=== PATIENT | male | born 1965 | race African-American/Black ===

== ENCOUNTER 2017-04-12 13:14 | Inpatient (IN) ==
[2017-04-12] MEDS ORDERED: DILTIAZEM 50 MG/10 ML VIAL IV STA (13:39)
[2017-04-12] MEDS ORDERED: DILTIAZEM 100 MG VIAL.ADD IV ONE (13:55)
[2017-04-12] MEDS ORDERED: SODIUM CHLORIDE 0.9% 0 ML IV ONE (13:56)
[2017-04-12] MEDS ORDERED: DILTIAZEM 50 MG/10 ML VIAL IV ONE (13:56)
[2017-04-12] MEDS ORDERED: DILTIAZEM INJ 100 MG in SODIUM CHLORIDE 0.9% 100 ML IV SCH (14:00)
[2017-04-12 14:16] LABS: Basophils % 0.3 % (0.0-0.8); Eosinophils % 0.3 % (0.00-10.9); Hematocrit 42.8 VOL% (42.0-52.0); Hemoglobin 14.1 GM/DL (14.0-18.0); Immature Granulocytes % 0.5 %; Immature Granulocytes Absolute 0.06 #; Lymphocytes # 1.5 10*3/uL (1.4-4.0); Lymphocytes % 13.2 % (21.2-54.2); Mean Corpuscular HGB Conc 32.9 GM/DL (32-36); Mean Corpuscular Hemoglobin 27 PG (27-34); Mean Corpuscular Volume 80.8 FL (87-102); Mean Platelet Volume 9.5 FL (9.6-12.0); Monocytes # 1.4 10*3/uL (0.11-0.8); Neutrophils % 72.7 % (38.7-73.9); Platelet Count 252 T/CUMM (130-400); Red Cell Distribution Width 13.5 % (9.3-17.3)
[2017-04-12 14:49] LABS: Alanine Aminotransferase 24 U/L (16-61); Albumin 3.2 G/DL (3.4-5.0); Alkaline Phosphatase 67 U/L (45-117); Aspartate Amino Transferase 13 U/L (0-37); Blood Urea Nitrogen 17 MG/DL (7-18); Calcium 9.1 MG/DL (8.5-10.1); Glucose 100 MG/DL (74-106); Potassium 3.8 MMOL/L (3.5-5.1); Sodium 136 MMOL/L (136-145); Thyroid Stimulating Hormone 0.659 uIU/ml (0.358-3.74); Total Protein 7.7 G/DL (6.4-8.3); Troponin I Only < 0.015 NG/ML (0.00-0.045)
[2017-04-12] MEDS ORDERED: LEVOFLOXACIN INJ 750 MG in PREMIX 1 EACH IV STA (15:43)
[2017-04-12] MEDS ORDERED: LEVOFLOXACIN INJ 150 ML IV ONE (15:45)
[2017-04-12] MEDS ORDERED: SODIUM CHLORIDE 0.9% 500 ML IV STA (15:46)
--- NOTE | 2017-04-12 15:47 | XRay Report ---
XR chest 2V Date: 04/12/2017 3:17 PM History: Fever Comparison: 03/06/2017 Technique: PA and lateral chest Findings: The heart is minimally enlarged with interval endovascular valve replacement x2. Progressive diffuse parenchymal findings especially in the lower lung zones with small pleural effusions. The pulmonary vasculature is more prominent. Right cervical rib with no acute osseous findings. Impression: Progressive cardiomegaly with interval endovascular valve replacement x2. Bilateral pneumonia with associated atelectasis and small pleural effusions. It is difficult to exclude superimposed minimal edema. Right cervical rib. PROCEDURE INTERPRETED AT [facility] DEPARTMENT OF RADIOLOGY Final Report Signed by: Dr. Liza Palm
--- NOTE | 2017-04-12 15:50 | Emergency Department Note ---
Kenn Box Manpreet, am scribing for, and in the presence of, Ralph Velasquez MD 13:39. Ron Box Doug C, MD, personally performed the services described in this documentation, ascribed by Chris Hawk in my presence, and it is both accurate and complete . Arrival - Arrival Chief Complaint: Arrhythmia/Palpitations Stated Complaint: increased HR ED Nursing Triage Note: C/o elevated heart rate-onset yesterday. States he was here yesterday and had his meds changed, but HR still elevated. Denies CP, SOB, or palpitations. Mode of Arrival: Ambulatory Limitations: No Limitations Source: Patient - History of Present Illness HPI Narrative: Patient 51-year-old black male comes today complaining of intermittent fevers for the last 5-6 days. Patient states she has had elevated heart rate for the last 2 days but has not had any chest pain or shortness of breath. Patient states she has felt chilled at times is never really checked his fever. He denies any GI symptoms he denies any urinary symptoms and is not having any symptoms of URI. He has a history of mitral valve repair in January of this year. He tells me this was done at [facility]. Has not had any recent tick bites that he is aware of. He denies any trouble voiding. Onset (ago): week(s) Consistency: constant, intermittent Severity: moderate Severity scale (1-10): 3 Allergies/Adverse Reactions: Allergies Allergy/AdvReac Type Severity Reaction Status Date / Time No Known Allergies Allergy Verified 12/07/16 06:50 Home Medications: Home Medications Medication Instructions Recorded Confirmed Type Apixaban [Eliquis] 5 mg PO BID 04/11/17 04/12/17 History Cyclobenzaprine [Flexeril] 10 mg PO TID PRN #30 tablet 04/11/17 04/12/17 Rx Losartan [Cozaar] 50 mg PO BID #60 tablet 04/11/17 04/12/17 Rx HYDROcodone/ACETAMIN 5-325 [[place] 1 tablet PO Q6H PRN 04/12/17 04/12/17 History 5-325] Review of System - Review of System 12 point system: reviewed and no additional remarkable complaints except as stated - Review of System Constitutional: Present: chills, fever, weakness. Absent: diaphoresis Head/Ears/Nose/Throat: Absent: nasal drainage, sore throat Respiratory: Absent: cough, respiratory distress, wheezing Cardiovascular: Present: palpitations. Absent: chest pain Gastrointestinal: Absent: abdominal pain, nausea, vomiting, diarrhea Genitourinary male: Absent: dysuria Musculoskeletal: Absent: arm pain, back pain, lower back pain, leg pain, neck pain Skin: Absent: rash, lesions, change in color Neurological: Absent: headache, weakness, numbness, paresthesias Medical,Surgical,& Family Hx - Medical History Cardio: History of: Hypertension, Valvular Heart Disease (Valve replacement January 2017) No history of: CAD Neurology: No history of: Seizures Endocrine: No history of: Diabetes Mellitus (IDDM), Diabetes Mellitus (NIDDM) - Surgical History Cardiac Surgeries: Sugical HX of: Cardiac Surgery (robotic mitral valve repair @ [facility] by Dr. Dominguez Jimenez) - Family History Family History: noncontributory - Social History Smoking Status: Former smoker Frequency of Alcohol Use: None Type of Drug Use: None Exam Vital Signs: Vital Signs Temperature 98.7 F 04/12/17 14:38 Pulse Rate 130 H 04/12/17 14:49 Respiratory Rate 18 04/12/17 14:49 Blood Pressure 133/105 04/12/17 14:49 O2 Sat by Pulse Oximetry 98 04/12/17 14:49 - General General appearance: alert - Head Head exam: Present: atraumatic, normocephalic, normal inspection - Eye Eye exam: Present: normal appearance, PERRL, EOMI - ENT ENT exam: Present: normal exam, normal oropharynx, mucous membranes moist - Neck Neck exam: Present: normal inspection, full ROM, trachea midline. Absent: lymphadenopathy - Chest Chest inspection: Present: normal inspection, symmetric chest wall rise - Respiratory Respiratory exam: Present: normal lung sounds bilaterally. Absent: respiratory distress - Cardiovascular Cardiovascular exam: Present: regular rate, normal rhythm, normal heart sounds - Abdominal Exam Abdominal exam: Present: soft, normal bowel sounds - Extremities Exam Extremities exam: Present: normal inspection, full ROM - Back Exam Back exam: Present: normal inspection, full ROM. Absent: tenderness - Neurological Exam Neurological exam: Present: alert, oriented X3, CN II-XII intact, reflexes normal - Psychiatric Psychiatric exam: Present: normal affect, normal mood - Skin Skin exam: Present: warm, dry, intact, normal color. Absent: pallor Course Course Narrative: Patient's clinical presentation, laboratory and radiographic findings were discussed with Amie who is covering the hospitalist service. She will arrange patient be evaluated for admission. Blood cultures and IV Levaquin were begun in the emergency room. Patient was given a bolus of Cardizem in the emergency room which slowed his heart rate down into the 120s. He did not have any evidence of underlying atrial flutter. Results - Labs CBC & BMP: 04/12/17 14:09 04/12/17 14:09 Lab Results: I have reviewed the patients labs Labs: Laboratory Tests 04/12/17 14:09 WBC 11.0 RBC 5.30 Hgb 14.1 Hct 42.8 MCV 80.8 L MCH 27 MCHC 32.9 RDW 13.5 Plt Count 252 Neut % (Auto) 72.7 Lymph % (Auto) 13.2 L [place] % (Auto) 13.0 H Eos % (Auto) 0.3 Baso % (Auto) 0.3 Neut # (Auto) 8.0 H Lymph # (Auto) 1.5 [place] # (Auto) 1.4 H Eos # (Auto) 0.0 Baso # (Auto) 0.0 Immature Gran % 0.5 Nucleated RBC % 0.0 Immature Gran # 0.06 Nucleated RBCs # 0.00 Immature Plt Fraction 0.0 Laboratory Tests 04/12/17 04/12/17 14:09 14:09 C-Reactive Protein 22.60 H Free T4 1.08 Laboratory Tests 04/12/17 04/12/17 14:09 14:09 Sodium 136 Potassium 3.8 Chloride 102 Carbon Dioxide 24 Anion Gap 13.8 BUN 17 Creatinine 1.20 GFR Calculation 101 BUN/Creatinine Ratio 14.00 Glucose 100 Calculated Osmolality 273.0 Calcium 9.1 Total Bilirubin 0.70 AST 13 ALT 24 Alkaline Phosphatase 67 Troponin I < 0.015 C-Reactive Protein 22.60 H Total Protein 7.7 Albumin 3.2 L Globulin 4.5 H Albumin/Globulin Ratio 0.7 L TSH 3rd Generation 0.659 Laboratory Tests 04/12/17 14:09 ESR Westergren 23 H - EKG EKG results: interpreted by ERMD EKG shows: tachycardia (Sinus tachycardia with heart rate of 139 bpm) - Diagnostic Findings Procedure: Chest x-ray: report reviewed by me (Right lower lobe pneumonia) Disposition Clinical Impression: Pneumonia, Sinus tachycardia Case discussed with: patient Disposition: Still a Patient Condition: Guarded Time of Disposition: 15:49
--- NOTE | 2017-04-12 15:59 | Order Completion Report ---
See report scanned to EMR
--- NOTE | 2017-04-12 16:03 | Hospitalist History & Physical ---
<Amie Maloney - Last Filed: 04/12/17 16:00> Assessment and Plan - Time spent with patient Time spent with patient: Greater than 30 minutes (1) Pneumonia Status: Acute Assessment and plan: Admit 04/12/17 -Start IV fluids -Sinus tachycardia: hydration, Log Check Scaler -Pneumonia: Blood cultures obtained - pending results Start Antibiotics - levaquin -Duonebs, o2 supplemental -Will discuss with Dr Brunner for further recommendations with care Current Visit: Yes (2) Sinus tachycardia Status: Acute Current Visit: Yes (3) Hypertension Status: Chronic Current Visit: No History of Present Illness Chief complaint: heart racing and pneumonia History of present illness: Mr. Washburn is a 51 year old black male w/PMHx HTN, Mitral Valve Replacement January 2017 presented to the Ed for further evaluation of "heart racing" and shortness of breath with exertion, fever and chills. Denies chest pain, tightness, cough, nausea, vomiting, cough. IN ED: Electrolytes WNL. ESR Westergren 23. CRP 22.60. CXR: Progressive cardiomegaly with interval endovascular valve replacement x2, bilateral pneumonia with associated atelectasis and small pleural effusions, it is difficult to exclude superimposed minimal edema. EKG: sinus tachycardia. IN ED he was given bolus diltiazem, levaquin, 500cc bolus. Denies smoking or drug use. Occasional alcohol use. SurgHx: hernia repair 15 years ago, Mitral Valve replacement Jan 2017. PCP: Dr Hamilton After discussion with Dr Velasquez in the ED and Dr Brunner with Hospital Medicine , it was agreed to admit patient for further evaluation of tachycardia, exertional shortness breath, and bilateral pneumonia. Home Medications Medication Instructions Recorded Confirmed Type Apixaban [Eliquis] 5 mg PO BID 04/11/17 04/12/17 History Cyclobenzaprine [Flexeril] 10 mg PO TID PRN #30 tablet 04/11/17 04/12/17 Rx Losartan [Cozaar] 50 mg PO BID #60 tablet 04/11/17 04/12/17 Rx HYDROcodone/ACETAMIN 5-325 [[place] 1 tablet PO Q6H PRN 04/12/17 04/12/17 History 5-325] Allergies Allergy/AdvReac Type Severity Reaction Status Date / Time No Known Allergies Allergy Verified 12/07/16 06:50 Medical,Surgical,& Family Hx - Medical History Cardio: History of: Hypertension, Valvular Heart Disease (Valve replacement January 2017) No history of: CAD Neurology: No history of: Seizures Endocrine: No history of: Diabetes Mellitus (IDDM), Diabetes Mellitus (NIDDM) - Surgical History Cardiac Surgeries: Sugical HX of: Cardiac Surgery (robotic mitral valve repair @ [facility] by Dr. Dominguez Jimenez) - Family History Family History: Reports;: Family Cancer, Family Diabetes, Family Heart Disease, Family Hypertension - Social History Smoking Status: Former smoker Frequency of Alcohol Use: None Type of Drug Use: None Marital Status: Lives With:: Spouse Functional capacity: independent ambulation 12 point system: reviewed and no additional remarkable complaints except as stated - Constitutional Constitutional: Present: chills, fever(s). Absent: frequent falls, headache(s) - Cardiovascular Cardiovascular: Present: dyspnea on exertion, palpitations. Absent: chest pain at rest, chest pain with activity, edema, radiating jaw, neck or arm pain - Respiratory Respiratory: Present: dyspnea on exertion. Absent: wheezing - Gastrointestinal Gastrointestinal: Absent: abdominal pain - Genitourinary Genitourinary: Absent: difficulty urinating, dysuria, flank pain - Neurological Neurological: Absent: abnormal speech, confusion, dizziness, frequent falls, headache(s), syncope Exam - Constitutional Vitals: Period Temp Pulse Resp BP Sys/Strong Pulse Ox Last 24 Hr 98.7 F-98.7 F 127-143 18-22 133-149/103-105 98-99 General appearance: normal weight, no acute distress - Head Head exam: Present: normal inspection - Eye Eye exam: Present: EOMI Pupils: Present: ETHEL - Neck Neck exam: Present: normal inspection. Absent: thyromegaly - Respiratory Respiratory exam: Present: clear to auscultation bilaterally. Absent: rales, rhonchi, stridor, wheezes - Cardiovascular Cardiovascular exam: Present: tachycardia - GI/Abdominal GI/Abdominal exam: Present: normal bowel sounds, soft. Absent: tenderness, rebound - Extremities Exam Extremities exam: Present: normal inspection, full ROM. Absent: edema - Neurological Exam Neurological exam: Present: alert, oriented X3, CN II-XII intact - Psychiatric Psychiatric exam: Present: normal affect, normal mood. Absent: agitated, anxious - Skin Skin exam: Present: normal color, warm, dry Results - Labs CBC & BMP: 04/12/17 14:09 04/12/17 14:09 Lab Results: I have reviewed the past 24 hour labs - EKG EKG results: interpreted by PURNIMA - Diagnostic Findings Procedure: Chest x-ray: report reviewed by me (Progressive cardiomegaly with interval endovascular valve replacement 2, bilateral pneumonia with associated atelectasis and small pleural effusions, it is difficult to exclude superimposed minimal edema. Right cervical rib.) <Pepe Brunner - Last Filed: 04/13/17 07:20> History of Present Illness History of present illness: Mr. Washburn is a 51 year old male who is being admitted to the hospital with pneumonia status post recent mitral valve replacement. I have interviewed and examined the patient and reviewed all available laboratory and radiographic test results. I agree with the assessment and plans of Amie STOCK. Mr. Washburn will be admitted to the hospital, begun on intravenous antibiotics, and seen in consultation by cardiology and pulmonary. Exam - Constitutional Vitals: Period Temp Pulse Resp BP Sys/Strong Pulse Ox Last 24 Hr 97.0 F-99.8 F 116-143 18-24 133-168/96-108 92-100 Results - Labs CBC & BMP: 04/13/17 04:42 04/13/17 04:42
[2017-04-12] MEDS ORDERED: ONDANSETRON 4 MG/2 ML VIAL IV PRN (16:43)
[2017-04-12] MEDS ORDERED: ACETAMINOPHEN 325 MG TABLET PO PRN (16:43)
[2017-04-12] MEDS ORDERED: MORPHINE 2 MG/1 ML SYRINGE IV PRN (16:43)
[2017-04-12] MEDS ORDERED: INFLUENZA VIRUS VACCINE 0.5 ML SYRINGE IM ONE (17:56)
[2017-04-12] MEDS: SODIUM CHLORIDE 0.9% 1,000 ML IV SCH (18:48)
--- NOTE | 2017-04-12 19:02 | Cardiology Consult Note ---
Assessment and Plan - Time spent with patient Time spent with patient: Greater than 30 minutes (1) Pneumonia Status: Acute Assessment and plan: See plan of care listed below. Current Visit: Yes (2) Sinus tachycardia Status: Acute Assessment and plan: See plan of care listed below. Current Visit: Yes (3) Chronic anticoagulation Status: Chronic Assessment and plan: See plan of care listed below. Current Visit: No (4) Hypertension Status: Chronic Assessment and plan: See plan of care listed below. Current Visit: No (5) S/P mitral valve repair Status: Chronic Assessment and plan: See plan of care listed below. Current Visit: No History of Present Illness - Consult Narrative History of present illness: 51-year-old male admitted with shortness of breath and cough. Chest x-ray shows moderate cardiomegaly with right lower lobe pneumonia and a tiny effusions. White count 11.0 hemoglobin 14.1 potassium 3.8 creatinine 1.20C reactive protein 22.6 with a negative troponin. UA is negative. EKG shows sinus tachycardia and ST-T wave changes unchanged from prior tracings. The patient is status post robotic mitral valve repair February 13, [address] Jimenez. Preop cardiac cath showed widely patent coronary arteries, normal ventricular function and severe mitral regurgitation with posterior leaflet prolapse. He does have chronic hypertension for 15 years. His medications have been recently adjusted.. He was taking metoprolol 50 mg twice daily and he felt fatigued, had bradycardia was cut back to 25 mg twice daily. He was seen in fast track yesterday with neck pain and was treated with Norflex and Toradol. He also was given labetalol 20 mg IV and then losartan gradually abated was added to his hypertensive regimen. Follow-up was scheduled with Dr. Ibrahim in 1 week. Blood pressure is 146/100. Pulse is sinus tach rate 120 O2 sat 93% on 2 L cannula. Bilateral arcus no xanthelasma. Neck veins are flat lungs show decreased breath sounds with a few rhonchi in the right side only no wheezing. Rhythm is regular soft murmur at the lower sternal border abdomen obese soft benign femoral pulses 2+ pulses 2+ no edema. Home medications as of discharge from fast track yesterday included losartan 50 mg twice daily, hydrocodone 5 every 6 hours as needed for neck pain and Flexeril 10 mg 3 times daily and Eliquis 5 g twice daily and metoprolol 25 mg twice daily. No allergies Impression right lower lobe pneumonia Chronic hypertension long-standing with inadequate control Sinus tachycardia. This is physiologic tachycardia due to pneumonia and hypertension. Status post robotic mitral valve repair February 15, 2070 at [facility] by Dr. Jimenez. Chronic anticoagulation Preop cath showed widely patent quite a normal ventricular function EF 60% Remote tobacco abuse Normal exercise cardiac stress test November 27, 2016 EF 58% patient had good work capacity achieving 11.5 mets Echo Doppler April 01 2017 EF 58% with grade 1 diastolic dysfunction, mildly dilated left atrium, well-seated mitral valve ring with no MR, normal RV function mild TR. Plan Cozaar 100 mg daily Increase carvedilol 6.25 mg twice daily IV antibiotics and nebs CC: Pepe Brunner - Home Medications and Allergies Home Medications: Home Medications Medication Instructions Recorded Confirmed Type Apixaban [Eliquis] 5 mg PO BID 04/11/17 04/12/17 History Cyclobenzaprine [Flexeril] 10 mg PO TID PRN #30 tablet 04/11/17 04/12/17 Rx Losartan [Cozaar] 50 mg PO BID #60 tablet 04/11/17 04/12/17 Rx HYDROcodone/ACETAMIN 5-325 [[place] 1 tablet PO Q6H PRN 04/12/17 04/12/17 History 5-325] Allergies/Adverse Reactions: Allergies Allergy/AdvReac Type Severity Reaction Status Date / Time No Known Allergies Allergy Verified 12/07/16 06:50 Review of systems: - Constitutional: Present: fever, chills, As per HPI. Absent: anorexia, daytime sleepiness, excessive sweating, frequent falls, headache(s), increased appetite, lethargy, malaise, night sweats, stops breathing during sleep, weakness, weight gain, weight loss, fatigue. - EENT Eyes: Present: As per HPI. Absent: blurry vision, diplopia, loss of vision Ears: Present: As per HPI. Absent: decreased hearing, ear discharge, ear pain Nose, mouth and throat: Present: neck pain, As per HPI. Absent: dysphagia, epistaxis, headache(s), hoarseness, lip swelling, nasal congestion, neck mass, sinus pressure, sore throat, throat swelling, tongue swelling, vertigo - Cardiovascular: Present: as per HPI. Absent: chest pain at rest, chest pain with activity, dyspnea, dyspnea on exertion, edema, claudication, diaphoresis, radiating jaw, neck or arm pain, lightheadedness, orthopnea, palpitations, PND - Respiratory: Present: dyspnea, as per HPI. Absent: dyspnea on exertion, hemoptysis, wheezing, snoring, pain on inspiration - Gastrointestinal: Present: As per HPI. Absent: abdominal pain, bloating, change in bowel habits, constipation, diarrhea, heartburn, hematemesis, hematochezia, loose stools, melena, nausea, vomiting - Genitourinary: Present: As per HPI. Absent: difficulty urinating, dysuria, flank pain, hematuria, nocturia, urinary frequency, urinary incontinence - Musculoskeletal: Present: neck pain, As per HPI. Absent: arthralgias, back pain, joint swelling, limited range of motion, muscle cramps, muscle weakness, myalgias - Neurological: Present: As per HPI. Absent: abnormal gait, abnormal speech, behavioral changes, confusion, convulsions, disequilibrium, dizziness, focal weakness, frequent falls, headache(s), memory loss, numbness, paresthesias, radicular pain, syncope, tremor(s) - Psychiatric: Present: As per HPI. Absent: anxiety, confusion, depression, panic attacks - Endocrine: Present: As per HPI. Absent: cold intolerance, fatigue, heat intolerance, polydipsia, polyphagia - Hematologic/Lymphatic: Present: As per HPI. Absent: easy bleeding, easy bruising, lymphadenopathy Medical,Surgical,& Family Hx - Medical History Cardio: History of: Hypertension, Valvular Heart Disease (Valve replacement January 2017) No history of: CAD Neurology: No history of: Seizures Endocrine: No history of: Diabetes Mellitus (IDDM), Diabetes Mellitus (NIDDM) Musculoskeletal: History of: Back/Neck Problems Other: No history of: Cancer - Surgical History Cardiac Surgeries: Sugical HX of: Cardiac Catheterization, Cardiac Surgery ( robotic mitral valve repair 02/13/17 @ [facility] by Dr. Dominguez Jimenez) HEENT Surgeries: Patient denies: Tonsilectomy & Adenoidectomy Abdominal Surgeries: Patient denies: Appendectomy, Cholecystectomy - Family History Family History: Reports;: Family Cancer (SISTER), Family Diabetes (MOTHER, FATHER), Family Heart Disease, Family Hypertension (MOTHER, FATHER), Family Stroke (BROTHER) - Social History Smoking Status: Former smoker Frequency of Alcohol Use: Occasionally Type of Drug Use: None Physical Examination Vital Signs Temp Pulse Resp BP Pulse Ox 98.7 F 143 H 18 139/103 98 04/12/17 13:18 04/12/17 13:18 04/12/17 13:18 04/12/17 13:18 04/12/17 13:18 Exam: General appearance: Appears well. Pleasant and cooperative. Overweight, no acute distress. Head exam: Present: normal inspection, normocephalic, atraumatic. Absent: hematoma, laceration Eye exam: Present: EOMI. Absent: conjunctival injection, nystagmus, periorbital swelling, scleral icterus, laceration to eyelids, jaundice Pupils: Present: PERRL. Absent: constricted, dilated, fixed, irregular, unequal ENT exam: Present: normal exam, normal external ear exam, mucous membranes moist. Neck exam: Present: normal inspection, midline trachea. Absent: masses, lymphadenopathy, tenderness, thyromegaly, carotid bruit Respiratory exam: Present: decreased breath sounds with few rhonchi in the right side only, no wheezing. Absent: accessory muscle use, chest wall tenderness, rales. Cardiovascular exam: Present: regular rate and rhythm, tachycardia. Systolic murmur. Absent: gallop, JVD, rubs, GI/Abdominal exam: Present: normal bowel sounds, soft. Absent: distended, firm , hernia, mass, tenderness. Extremities exam: Present: Normal Gait, No Clubbing, No Cyanosis, Upper Extr. Pulses 2+, Lower Extr. Pulses 2+, No edema. Capillary refill less than 3 seconds. Musculoskeletal: Present: No Fluid Collection, No Pain, Normal Range of Motion Back exam: Present: normal inspection. Absent: muscle spasm, vertebral tenderness Neurological exam: Present: awake, alert, oriented X3, Moves all extremities well without hemiparesis or paralysis. Grossly intact without resting or essential tremor Psychiatric exam: Present: normal affect, normal mood Skin exam: Present: normal color, warm, dry, intact. Absent: cyanosis, diaphoretic, rash, urticaria Result/EKG - Labs CBC & BMP: 04/12/17 14:09 04/12/17 14:09 Lab Results: I have reviewed the past 24 hour labs Labs: Laboratory Results - last 24 hr 04/12/17 04/12/17 04/12/17 14:09 14:09 14:09 WBC 11.0 RBC 5.30 Hgb 14.1 Hct 42.8 MCV 80.8 L MCH 27 MCHC 32.9 RDW 13.5 Plt Count 252 MPV 9.5 L Neut % (Auto) 72.7 Lymph % (Auto) 13.2 L [place] % (Auto) 13.0 H Eos % (Auto) 0.3 Baso % (Auto) 0.3 Neut # (Auto) 8.0 H Lymph # (Auto) 1.5 [place] # (Auto) 1.4 H Eos # (Auto) 0.0 Baso # (Auto) 0.0 Immature Gran % 0.5 Nucleated RBC % 0.0 Immature Gran # 0.06 Nucleated RBCs # 0.00 Immature Plt Fraction 0.0 ESR Westergren Sodium 136 Potassium 3.8 Chloride 102 Carbon Dioxide 24 Anion Gap 13.8 BUN 17 Creatinine 1.20 GFR Calculation 101 BUN/Creatinine Ratio 14.00 Glucose 100 Calculated Osmolality 273.0 Calcium 9.1 Total Bilirubin 0.70 AST 13 ALT 24 Alkaline Phosphatase 67 Troponin I < 0.015 C-Reactive Protein Total Protein 7.7 Albumin 3.2 L Globulin 4.5 H Albumin/Globulin Ratio 0.7 L Free T4 1.08 TSH 3rd Generation 0.659 04/12/17 04/12/17 14:09 14:09 WBC RBC Hgb Hct MCV MCH MCHC RDW Plt Count MPV Neut % (Auto) Lymph % (Auto) [place] % (Auto) Eos % (Auto) Baso % (Auto) Neut # (Auto) Lymph # (Auto) [place] # (Auto) Eos # (Auto) Baso # (Auto) Immature Gran % Nucleated RBC % Immature Gran # Nucleated RBCs # Immature Plt Fraction ESR Westergren 23 H Sodium Potassium Chloride Carbon Dioxide Anion Gap BUN Creatinine GFR Calculation BUN/Creatinine Ratio Glucose Calculated Osmolality Calcium Total Bilirubin AST ALT Alkaline Phosphatase Troponin I C-Reactive Protein 22.60 H Total Protein Albumin Globulin Albumin/Globulin Ratio Free T4 TSH 3rd Generation - EKG EKG results: interpreted by me, sinus rhythm EKG shows: tachycardia
--- NOTE | 2017-04-12 20:15 | Pulmonology Consult Note ---
History of Present Illness Chief complaint: Pneumonia History of present illness: Troy Valencia, [facility], acting as scribe for Dr. Boby Diez Mr. Washburn is a 51 year old -[place] male who we have been asked to see in pulmonary consultation for evaluation and treatment. The request for consultation was made by Dr. Brunner. Mr. Washburn presented to [facility]'s ER yesterday with complaints of neck pain and upper back pain that started on Saturday (3 days prior). He had hypertension and sinus tachycardia while in the ER. He was seen in fast track by Dr. coley. Medication adjustments were made. He was discharged home and instructed to follow-up with his primary care physician (Dr. Anabela Hamilton) and his educational technology specialist Dr. Ibrahim. Today, however, he presented back to the ER with complaints of intermittent fevers for the past 5-6 days. He also reported tachycardia but denied chest pain or shortness of breath. Upon evaluation, he was found to have an acute right lower lobe infiltrate compatible with pneumonia. He was admitted for further evaluation and care. He reports increasing shortness of breath for the past few days to week. He has had associated fever and chills. He reports a cough, but has had difficulty mobilizing his secretions. He denies cardiac angina or palpitations. He had a mitral valve replacement in January 2017. He denies dysphasia or reflux. There is been no bleeding from any site. No TIA symptoms or syncope. No change in bowel or bladder habits. All other systems are reviewed and were negative. Allergies: None Home medications: See list Past medical history: Positive for hypertension and valvular heart disease now status post mitral valve replacement in January 2017. Of note, he is on chronic anticoagulation with Eliquis. Surgical history: Positive for mitral valve replacement in January 2017. This was done robotically at [facility] by Dr. Dominguez Jimenez. Family history: Positive for an unknown type of cancer, diabetes, heart disease , and hypertension Social history: The patient is a former smoker. He states he quit approximately 15-16 years ago. 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 He is . He drinks alcohol at least weekly. Cervical spine x-ray done 04/11/2017 showed no acute fracture or subluxation the cervical spine. There were mild degenerative changes noted. Chest x-ray. Done 04/12/2017. My interpretation. Cardiomegaly. Acute right lower lobe infiltrate with associated small pleural effusion. Endovascular valve replacement 2. Laboratory: White count is 11,000 with 72.7% segs, 13.2% lymphs, and 13.0% monos ; H&H 14.1/42.8 with low to low normal indices and normal red blood cell distribution width; platelet count 252,000; creatinine 1.20, BUN 17, sodium 136 , potassium 3.8, calcium 9.1, albumin 3.2, total protein 7.7; liver function tests within normal limits; troponin less than 0.015; C-reactive protein markedly elevated at 22.60, sed rate minimally elevated at 23, BNP 148; TSH and free T4 normal at 0.659 and 1.08 respectively Home Medications Medication Instructions Recorded Confirmed Type Apixaban [Eliquis] 5 mg PO BID 04/11/17 04/12/17 History Cyclobenzaprine [Flexeril] 10 mg PO TID PRN #30 tablet 04/11/17 04/12/17 Rx Losartan [Cozaar] 50 mg PO BID #60 tablet 04/11/17 04/12/17 Rx HYDROcodone/ACETAMIN 5-325 [Faison 1 tablet PO Q6H PRN 04/12/17 04/12/17 History 5-325] Allergies Allergy/AdvReac Type Severity Reaction Status Date / Time No Known Allergies Allergy Verified 12/07/16 06:50 Exam (Pulmonay) H&P - Constitutional Vitals: Period Temp Pulse Resp BP Sys/Strong Pulse Ox Last 24 Hr 97.4 F-98.7 F 126-143 18-24 133-168/101-108 97-100 Exam: Psych: Oriented x 3; a pleasant and cooperative patient HEENT: Pupils, irises, sclera, conjunctiva, and eyelids are normal. The face is symmetrical without rash or masses. Lips, tongue, buccal mucosa, soft and hard palates, and pharynx are WNL Neck: Symmetrical. Thyroid was not palpated. Lymphatics: No submandibular, cervical, or supraclavicular adenopathy Chest: Symmetrical with decreased breath sounds in the right with few rhonchi CV: Regular with a short grade 1/6 systolic ejection murmur at the left sternal border that does not radiate Arterial: Carotids with a good upstroke. There is no bruit. Upper extremity pulses are palpable. Lower extremity pulses are palpable. Venous: Exam of the neck, upper, and lower extremities is normal Abd: No appreciable organomegaly, masses, tenderness, or bruit; Bowel sounds are positive 4; The aorta was not palpated /Rectal: Deferred Extremities: No clubbing, cyanosis, edema, or obvious DVT Skin: No cancerous or infectious lesions of the exposed, examined skin; the perineal area was not examined M/S: Age appropriate loss of the normal curvature of the cervical, thoracic, and lumbar spine Neurological: Cranial nerves are intact, Long tract motor function is intact; Sensory exam was not done; gait was not tested. The remainder of the exam was noncontributory. Impression: #1: Acute right lower lobe pneumonia #2: Status post robotic mitral valve repair in January 2017 at [facility] #3: Chronic anticoagulation with Eliquis #4: Hypertension #5: Sinus tachycardia #6: Elevated C-reactive protein #7: See past history Plan: #1: Agree with Levaquin, but will add Fortaz for greater coverage #2: Check sputum for Gram stain, culture and sensitivity #3: Check cold agglutinins, Legionella, pro-calcitonin, and strep pneumoniae urine antigen #4: Repeat chest x-ray in the morning #5: Inhalation therapy with Atrovent #6: See orders We appreciate this consult and will follow along with you. Medical,Surgical,& Family Hx - Medical History Cardio: History of: Hypertension, Valvular Heart Disease (Valve replacement January 2017) No history of: CAD Neurology: No history of: Seizures Endocrine: No history of: Diabetes Mellitus (IDDM), Diabetes Mellitus (NIDDM) Musculoskeletal: History of: Back/Neck Problems Other: No history of: Cancer - Surgical History Cardiac Surgeries: Sugical HX of: Cardiac Catheterization, Cardiac Surgery ( robotic mitral valve repair 02/13/17 @ [facility] by Dr. Dominguez Jimenez) HEENT Surgeries: Patient denies: Tonsilectomy & Adenoidectomy Abdominal Surgeries: Patient denies: Appendectomy, Cholecystectomy - Family History Family History: Reports;: Family Cancer (SISTER), Family Diabetes (MOTHER, FATHER), Family Heart Disease, Family Hypertension (MOTHER, FATHER), Family Stroke (BROTHER) - Social History Smoking Status: Former smoker Frequency of Alcohol Use: Occasionally Type of Drug Use: None Results - Labs CBC & BMP: 04/12/17 14:09 04/12/17 14:09
[2017-04-12] MEDS ORDERED: LOSARTAN 50 MG TABLET PO SCH (21:00)
[2017-04-12] MEDS ORDERED: CARVEDILOL 3.125 MG TABLET PO SCH (21:00)
[2017-04-12] MEDS: CARVEDILOL 6.25 MG TABLET PO SCH (21:28)
[2017-04-12] MEDS: APIXABAN 5 MG TABLET PO SCH (21:28)
[2017-04-12] MEDS: IPRATROPIUM 500 MCG/2.5 ML NEB RESP TX SCH (21:31)
[2017-04-12] MEDS: CYCLOBENZAPRINE 10 MG TABLET PO PRN (22:08)
[2017-04-13] MEDS: IPRATROPIUM 500 MCG/2.5 ML NEB RESP TX SCH ×4 (00:57→20:47)
[2017-04-13] MEDS: SODIUM CHLORIDE 0.9% 1,000 ML IV SCH ×3 (01:57→18:42)
[2017-04-13 04:51] LABS: Basophils % 0.3 % (0.0-0.8); Eosinophils % 0.3 % (0.00-10.9); Hematocrit 40.1 VOL% (42.0-52.0); Hemoglobin 13.1 GM/DL (14.0-18.0); Immature Granulocytes % 0.3 %; Immature Granulocytes Absolute 0.03 #; Lymphocytes # 1.3 10*3/uL (1.4-4.0); Lymphocytes % 13.7 % (21.2-54.2); Mean Corpuscular HGB Conc 32.7 GM/DL (32-36); Mean Corpuscular Hemoglobin 26 PG (27-34); Mean Corpuscular Volume 80.5 FL (87-102); Mean Platelet Volume 9.2 FL (9.6-12.0); Monocytes # 1.3 10*3/uL (0.11-0.8); Monocytes % 13.5 % (1.7-12.7); Neutrophils # 6.6 10*3/uL (1.4-7.4); Neutrophils % 71.9 % (38.7-73.9); Platelet Count 232 T/CUMM (130-400); Red Blood Count 4.98 MC/CUMM (3.8-5.5); Red Cell Distribution Width 13.5 % (9.3-17.3); White Blood Count 9.3 T/CUMM (4-12)
[2017-04-13 05:23] LABS: Calcium 8.6 MG/DL (8.5-10.1); Potassium 4.3 MMOL/L (3.5-5.1); Risk Ratio 2.57; VLDL CHOLESTEROL 9.2 MG/DL
--- NOTE | 2017-04-13 08:03 | Order Completion Report ---
See report scanned to EMR
[2017-04-13] MEDS: LOSARTAN 50 MG TABLET PO SCH (08:46)
[2017-04-13] MEDS: APIXABAN 5 MG TABLET PO SCH ×2 (08:47→21:38)
[2017-04-13] MEDS: PANTOPRAZOLE 40 MG TABLET PO SCH (08:47)
[2017-04-13] MEDS: CARVEDILOL 6.25 MG TABLET PO SCH ×2 (08:47→21:38)
--- NOTE | 2017-04-13 10:09 | Hospitalist Progress Note ---
Assessment and Plan (1) Hypertension Status: Chronic Assessment and plan: His blood pressure today is 134/93. I will continue his present medications. Current Visit: No (2) S/P mitral valve repair Status: Chronic Assessment and plan: He is approximately 3 months status post mitral valve repair. He is being followed by cardiology. Current Visit: No (3) Pneumonia Status: Acute Assessment and plan: He is presently being treated with intravenous levofloxacin and ceftazidime. He appears to be doing well. I will continue his present medications. Current Visit: Yes Qualifiers: Pneumonia type: due to unspecified organism Laterality: bilateral Lung location: lower lobe of lung Qualified Code(s): J18.9 - Pneumonia, unspecified organism Hospitalist: Subjective Interval history: Mr. Washburn is doing well today. He is not experiencing chest pain, shortness of breath, or coughing. He was seen yesterday in consultation by Dr. Troy Valencia of pulmonary and Dr. Jarrett Soto of cardiology. Dr. Valencia and jemal Fortaz to his previous antibiotic and Dr. Soto recommended continuation of his present medications. Exam - Constitutional Vitals: Period Temp Pulse Resp BP Sys/Strong Pulse Ox Last 24 Hr 97.0 F-99.8 F 114-143 16-24 133-168/93-108 92-100 General appearance: no acute distress - Head Head exam: Present: normal inspection - Neck Neck exam: Present: normal inspection - Respiratory Respiratory exam: Present: other (Decreased basilar breath sounds.) - Cardiovascular Cardiovascular exam: Present: regular rate and rhythm - GI/Abdominal GI/Abdominal exam: Present: normal bowel sounds, soft - Extremities Exam Extremities exam: Present: normal inspection - Skin Skin exam: Present: normal color, warm, intact Results - Labs CBC & BMP: 04/13/17 04:42 04/13/17 04:42
--- NOTE | 2017-04-13 11:48 | XRay Report ---
History: Pneumonia Date: 04/13/2017 Study: Chest x-ray PA and lateral Comparison exam: 04/12/2017 The cardiomediastinal silhouette is unchanged. There is evidence of prosthetic cardiac valve. The pulmonary vasculature is not engorged. There is some strandy and hazy atelectasis/infiltrate in the lower lungs, right more than left, without change. There may be trace bilateral pleural effusion. There is no new or worsening infiltrate. There is a large cervical rib on the right. The exam is otherwise unchanged Impression: Continued atelectasis/infiltrate in the lower lungs, more on the right, grossly similar. No interval worsening PROCEDURE INTERPRETED AT [facility] DEPARTMENT OF RADIOLOGY Final Report Signed by: Dr. Chasity Bruno
--- NOTE | 2017-04-13 11:51 | Pulmonology Progress Note ---
Pulmonary - PN: Subj Interval history: 51-year-old black male whom I saw on pulmonary consultation on 04/12/2013 My impressions were #1: Acute right lower lobe pneumonia #2: Status post robotic mitral valve repair in January 2017 at [facility] #3: Chronic anticoagulation with Eliquis #4: Hypertension #5: Sinus tachycardia #6: Elevated C-reactive protein #7: See past history 04/13/2017. Chest x-ray. Heart is top normal in size. Pulmonary arteries appear to be normal there is no hilar adenopathy mediastinum is normal. There is area of resolving infiltrate in the right lower lung and behind it there appears to be a cystic area. This looks like a localized area of emphysema and may have developed secondary to an infection. I have ordered a follow-up chest x-ray for tomorrow to have ordered a CT of the chest in order to get a different look at this area. I think it will stock turner to be benign. Thyroid function tests are normal kidney and electrolytes are normal. H&H is stable. White count is only 9300 with 72 segs 14 lymphs 13 monos. There are no results from microbiology. Physical exam. Vital signs. See below. Afebrile Psychiatric. Oriented 3 Face. Symmetrical. No edema of the lips or tongue. Neck. Symmetrical. No meningismus Chest. Very clear. No wheezes or rales. Heart. Lateral PMI. No gallop Abdomen. Nondistended nontender. Positive bowel sounds Extremities. Nothing to suggest deep venous thrombophlebitis Neurologic. Cranial nerves are intact. Long track motor functions intact The remainder the physical exam is Plan: 04/12/2017 #1: Agree with Levaquin, but will add Fortaz for greater coverage #2: Check sputum for Gram stain, culture and sensitivity #3: Check cold agglutinins, Legionella, pro-calcitonin, and strep pneumoniae urine antigen #4: Repeat chest x-ray in the morning #5: Inhalation therapy with Atrovent #6: See orders 04/13/2017. 1. See today's note above 2. Chest x-ray in a.m. 3. CT of the chest with and without contrast to evaluate right lower lung abnormality Exam (Progress Note) - Constitutional Vitals: Period Temp Pulse Resp BP Sys/Strong Pulse Ox Last 24 Hr 97.0 F-99.8 F 107-143 16-24 133-168/93-108 92-100 Results - Labs CBC & BMP: 04/13/17 04:42 04/13/17 04:42
--- NOTE | 2017-04-13 12:25 | Cardiology Progress Note ---
Cardiology - PN: Subj Interval history: Cardiology note 51-year-old man admitted with right lower lobe pneumonia. No fever or chills. Telemetry shows sinus tachycardia rate 110 Blood pressure 140/86 in the left arm by me Regular rhythm soft murmur. No gallop and no rub. Decreased breath sounds with rhonchi in the right base no wheezing Abdomen soft benign No leg edema Lab data today White count 9.3 hemoglobin 13.1 hematocrit 40.1 Sodium 136 potassium 4.3 chloride 104 CO2 25 BUN 16 creatinine 1.10 glucose 101 magnesium 2.0 Impression Right lower lobe pneumonia Chronic hypertension long-standing Status post robotic mitral valve repair February 15, 2017 at [facility] with Dr. Jimenez Chronic anticoagulation Preop cath showed widely patent coronaries and ejection fraction 60% Remote smoker Normal exercise cardiac stress test November 27, 2016 EF 58% and good work capacity, patient achieved 11.5 mets Echo Doppler April 01, 2017 EF 58% grade 1 diastolic dysfunction mildly dilated left atrium, well-seated mitral valve ring with no MR, normal RV function and mild TR Plan Continue Cozaar 100 mg daily Continue Coreg 6.25 mg twice daily IV antibiotics and nebs Exam (Progress Note) - Constitutional Vitals: Period Temp Pulse Resp BP Sys/Strong Pulse Ox Last 24 Hr 97.0 F-99.8 F 107-143 16-24 133-168/93-108 92-100 Result/EKG - Labs CBC & BMP: 04/13/17 04:42 04/13/17 04:42 Labs: Laboratory Results - last 24 hr 04/12/17 04/12/17 04/12/17 14:09 14:09 14:09 WBC 11.0 RBC 5.30 Hgb 14.1 Hct 42.8 MCV 80.8 L MCH 27 MCHC 32.9 RDW 13.5 Plt Count 252 MPV 9.5 L Neut % (Auto) 72.7 Lymph % (Auto) 13.2 L Carbon % (Auto) 13.0 H Eos % (Auto) 0.3 Baso % (Auto) 0.3 Neut # (Auto) 8.0 H Lymph # (Auto) 1.5 Carbon # (Auto) 1.4 H Eos # (Auto) 0.0 Baso # (Auto) 0.0 Immature Gran % 0.5 Nucleated RBC % 0.0 Immature Gran # 0.06 Nucleated RBCs # 0.00 Immature Plt Fraction 0.0 ESR Westergren Sodium 136 Potassium 3.8 Chloride 102 Carbon Dioxide 24 Anion Gap 13.8 BUN 17 Creatinine 1.20 GFR Calculation 101 BUN/Creatinine Ratio 14.00 Glucose 100 Calculated Osmolality 273.0 Calcium 9.1 Magnesium Total Bilirubin 0.70 AST 13 ALT 24 Alkaline Phosphatase 67 Troponin I < 0.015 C-Reactive Protein B-Natriuretic Peptide Total Protein 7.7 Albumin 3.2 L Globulin 4.5 H Albumin/Globulin Ratio 0.7 L Triglycerides Cholesterol LDL Cholesterol VLDL Cholesterol HDL Cholesterol Heart Disease Risk Ratio Free T4 1.08 TSH 3rd Generation 0.659 Cold Agglutinin Screen 04/12/17 04/12/17 04/12/17 14:09 14:09 19:07 WBC RBC Hgb Hct MCV MCH MCHC RDW Plt Count MPV Neut % (Auto) Lymph % (Auto) Carbon % (Auto) Eos % (Auto) Baso % (Auto) Neut # (Auto) Lymph # (Auto) Carbon # (Auto) Eos # (Auto) Baso # (Auto) Immature Gran % Nucleated RBC % Immature Gran # Nucleated RBCs # Immature Plt Fraction ESR Westergren 23 H Sodium Potassium Chloride Carbon Dioxide Anion Gap BUN Creatinine GFR Calculation BUN/Creatinine Ratio Glucose Calculated Osmolality Calcium Magnesium Total Bilirubin AST ALT Alkaline Phosphatase Troponin I C-Reactive Protein 22.60 H B-Natriuretic Peptide Total Protein Albumin Globulin Albumin/Globulin Ratio Triglycerides Cholesterol LDL Cholesterol VLDL Cholesterol HDL Cholesterol Heart Disease Risk Ratio Free T4 TSH 3rd Generation Cold Agglutinin Screen Negative 04/12/17 04/13/17 04/13/17 19:11 04:42 04:42 WBC 9.3 RBC 4.98 Hgb 13.1 L Hct 40.1 L MCV 80.5 L MCH 26 L MCHC 32.7 RDW 13.5 Plt Count 232 MPV 9.2 L Neut % (Auto) 71.9 Lymph % (Auto) 13.7 L Carbon % (Auto) 13.5 H Eos % (Auto) 0.3 Baso % (Auto) 0.3 Neut # (Auto) 6.6 Lymph # (Auto) 1.3 L Carbon # (Auto) 1.3 H Eos # (Auto) 0.0 Baso # (Auto) 0.0 Immature Gran % 0.3 Nucleated RBC % 0.0 Immature Gran # 0.03 Nucleated RBCs # 0.00 Immature Plt Fraction 0.0 ESR Westergren Sodium 136 Potassium 4.3 Chloride 104 Carbon Dioxide 25 Anion Gap 11.3 BUN 16 Creatinine 1.10 GFR Calculation 111 BUN/Creatinine Ratio 14.00 Glucose 101 Calculated Osmolality 272.0 L Calcium 8.6 Magnesium 2.0 Total Bilirubin AST ALT Alkaline Phosphatase Troponin I C-Reactive Protein B-Natriuretic Peptide 148 H Total Protein Albumin Globulin Albumin/Globulin Ratio Triglycerides 46 Cholesterol 118 LDL Cholesterol 59.0 VLDL Cholesterol 9.2 HDL Cholesterol 46 Heart Disease Risk Ratio 2.57 Free T4 TSH 3rd Generation Cold Agglutinin Screen
--- NOTE | 2017-04-13 14:41 | CT Report ---
History: Pneumonia. Equivocal cystic area right lung base Date: 04/13/2017 Study: CT chest with IV contrast Comparison exam: No previous chest CT available Spiral CT sections were obtained through the lungs following the IV administration of 80 mL of Omnipaque 350 without immediate complication. The CT exam was performed using one or more of the following dose reduction techniques: Automated exposure control, adjustment of the mA and/or kV according to patient size, or use of iterative reconstruction technique. There is some platelike and patchy atelectasis/infiltrate in both lower lobes with mild atelectatic change in the right middle lobe as well. There is no focal cystic lung lesion. There is mild left more than right pleural effusion. There is mild pericardial effusion and/or thickening. There is no thoracic aortic aneurysm or dissection. There is no mediastinal lymphadenopathy. There is a prosthetic mitral valve. There is at least mild coronary artery calcification involving the left anterior descending coronary artery. The partially visualized upper abdomen is grossly unremarkable. Impression: Bilateral lower lobe atelectasis/infiltrate which could represent pneumonia. There is no well-defined cystic lung abnormality. There is left greater than right pleural effusion. There is mild pericardial effusion and/or thickening. Prosthetic mitral valve. Mild coronary artery calcification PROCEDURE INTERPRETED AT [facility] DEPARTMENT OF RADIOLOGY Final Report Signed by: Dr. Chasity Bruno
[2017-04-13] MEDS: LEVOFLOXACIN INJ 750 MG in PREMIX 1 EACH IV SCH (16:56)
[2017-04-14] MEDS: IPRATROPIUM 500 MCG/2.5 ML NEB RESP TX SCH ×4 (01:39→19:23)
[2017-04-14] MEDS: SODIUM CHLORIDE 0.9% 1,000 ML IV SCH ×3 (03:21→17:59)
[2017-04-14] MEDS: LOSARTAN 50 MG TABLET PO SCH (08:36)
[2017-04-14] MEDS: CARVEDILOL 6.25 MG TABLET PO SCH (08:37)
[2017-04-14] MEDS: PANTOPRAZOLE 40 MG TABLET PO SCH (08:37)
[2017-04-14] MEDS: APIXABAN 5 MG TABLET PO SCH ×2 (08:37→21:00)
--- NOTE | 2017-04-14 08:59 | Cardiology Progress Note ---
Cardiology - PN: Subj Interval history: Cardiology note 49-year-old man admitted with right lower lobe pneumonia Telemetry shows sinus tach rate 105 Blood pressure 150/82 No fever. Regular rhythm soft murmur no gallop Decreased breath sounds with rhonchi in the right base Abdomen benign No edema Impression Right lower lobe pneumonia Long-standing hypertension Status post robotic mitral valve repair February 15, 2017 at [facility] by Dr. Jimenez Chronic anticoagulation Preop cath showed widely patent coronaries and ejection fraction 60% Remote smoker Normal exercise cardiac stress test November 27, 2016 EF 58% with good work capacity , patient achieved 11.5 METS Echo Doppler April 01, 2017 EF 60% with grade 1 diastolic dysfunction, mildly dilated left atrium, well-seated mitral valve ring with no MR, normal RV function and mild TR Plan Continue Cozaar 100 mg daily Increase Coreg 12.5 mg twice daily IV antibiotics and nebs Exam (Progress Note) - Constitutional Vitals: Period Temp Pulse Resp BP Sys/Strong Pulse Ox Last 24 Hr 97.8 F-100.4 F 103-127 16-20 123-143/58-99 93-99 Result/EKG - Labs CBC & BMP: 04/13/17 04:42 04/13/17 04:42
[2017-04-14] MEDS: CARVEDILOL 12.5 MG TABLET PO SCH ×2 (09:28→21:00)
--- NOTE | 2017-04-14 09:40 | Hospitalist Progress Note ---
Assessment and Plan (1) Hypertension Status: Chronic Assessment and plan: His blood pressure today is 139/82. I will continue his present medications. Current Visit: No (2) S/P mitral valve repair Status: Chronic Assessment and plan: He is approximately 3 months status post mitral valve repair. He is being followed by cardiology. Current Visit: No (3) Pneumonia Status: Acute Assessment and plan: He is presently being treated with intravenous levofloxacin and ceftazidime. Today is day 3 of antibiotics. He appears to be doing well. Repeat chest x- ray did not show a persistent infiltrate. I will continue his present medications. If stable, I will discharge him tomorrow on oral antibiotics. Current Visit: Yes Qualifiers: Pneumonia type: due to unspecified organism Laterality: bilateral Lung location: lower lobe of lung Qualified Code(s): J18.9 - Pneumonia, unspecified organism Hospitalist: Subjective Interval history: Mr. Washburn is doing very well. He is not experiencing shortness of breath, chest pain, or coughing. I discussed with him today that we would continue his intravenous antibiotics for 1 more day and discharge him tomorrow morning. Exam - Constitutional Vitals: Period Temp Pulse Resp BP Sys/Strong Pulse Ox Last 24 Hr 97.8 F-100.4 F 103-127 16-20 123-143/58-99 93-99 General appearance: no acute distress - Head Head exam: Present: normal inspection - Neck Neck exam: Present: normal inspection - Respiratory Respiratory exam: Present: clear to auscultation bilaterally - Cardiovascular Cardiovascular exam: Present: regular rate and rhythm - GI/Abdominal GI/Abdominal exam: Present: normal bowel sounds, soft - Extremities Exam Extremities exam: Present: normal inspection - Skin Skin exam: Present: normal color, warm, intact Results - Labs CBC & BMP: 04/13/17 04:42 04/13/17 04:42
--- NOTE | 2017-04-14 11:07 | XRay Report ---
History: Pneumonia. Abnormal chest x-ray Date: 04/14/2017 Study: Chest x-ray PA and lateral Comparison exam: 04/13/2017 There is continued cardiomegaly. Prosthetic heart valve is noted as before. The pulmonary vasculature is not engorged. There is continued strandy and hazy atelectasis/infiltrate in the lung bases, right greater than left. There is mild improved aeration of the right. There is trace bilateral pleural effusion, similar. Osseous structures are unchanged. Impression: Mildly improved aeration of the right lung base compared to the previous study. No adverse interval worsening PROCEDURE INTERPRETED AT [facility] DEPARTMENT OF RADIOLOGY Final Report Signed by: Dr. Chasity Bruno
--- NOTE | 2017-04-14 11:35 | Pulmonology Progress Note ---
Pulmonary - PN: Subj Interval history: 51-year-old black male whom I saw on pulmonary consultation on 04/12/2013 My impressions were #1: Acute right lower lobe pneumonia #2: Status post robotic mitral valve repair in January 2017 at [facility] #3: Chronic anticoagulation with Eliquis #4: Hypertension #5: Sinus tachycardia #6: Elevated C-reactive protein #7: See past history 04/13/2017. Chest x-ray. Heart is top normal in size. Pulmonary arteries appear to be normal there is no hilar adenopathy mediastinum is normal. There is area of resolving infiltrate in the right lower lung and behind it there appears to be a cystic area. This looks like a localized area of emphysema and may have developed secondary to an infection. I have ordered a follow-up chest x-ray for tomorrow to have ordered a CT of the chest in order to get a different look at this area. I think it will turntable operator to be benign. Thyroid function tests are normal kidney and electrolytes are normal. H&H is stable. White count is only 9300 with 72 segs 14 lymphs 13 monos. There are no results from microbiology. 04/14/2017. Today's chest x-ray shows some curvy linear areas of atelectasis in the right lower lung field. Previously noted infiltrate is 90% resolved. I was suspicious of cystic areas in the right lower lung and these are not present on CT scan of the chest. Patient's chest is clear and he says his breathing is fine. White count is 9300 with 72 segs 13.7 lymphs and 13.5 monocytes. Electrolytes H&H kidneys are normal thyroid is normal. There are no positive cultures. Cold agglutinins are negative. Legionella titer and pro calcitonin are pending. When this patient goes home I would suggest a week give him Levaquin 500 mg daily for 7 days and Ceftin 500 twice daily for 7 days. I will sign off. Please reconsult when needed. Physical exam. Vital signs. See below. Afebrile Psychiatric. Oriented 3 Face. Symmetrical. No edema of the lips or tongue. Neck. Symmetrical. No meningismus Chest. Very clear. No wheezes or rales. Heart. Lateral PMI. No gallop Abdomen. Nondistended nontender. Positive bowel sounds Extremities. Nothing to suggest deep venous thrombophlebitis Neurologic. Cranial nerves are intact. Long track motor functions intact The remainder the physical exam is Plan: 04/12/2017 #1: Agree with Levaquin, but will add Fortaz for greater coverage #2: Check sputum for Gram stain, culture and sensitivity #3: Check cold agglutinins, Legionella, pro-calcitonin, and strep pneumoniae urine antigen #4: Repeat chest x-ray in the morning #5: Inhalation therapy with Atrovent #6: See orders 04/13/2017. 1. See today's note above 2. Chest x-ray in a.m. 3. CT of the chest with and without contrast to evaluate right lower lung abnormality 04/14/2017. 1. See today's note above. 2. Pneumonia cleared. 3. When discharged home, send the patient home with Levaquin 500 mg p.o. daily 7 days and send him home on Ceftin 500 twice daily 7 days. 4. I will sign off. Reconsult as needed Exam (Progress Note) - Constitutional Vitals: Period Temp Pulse Resp BP Sys/Strong Pulse Ox Last 24 Hr 97.8 F-100.4 F 103-127 16-20 123-140/58-99 94-99 Results - Labs CBC & BMP: 04/13/17 04:42 04/13/17 04:42
[2017-04-14] MEDS: CYCLOBENZAPRINE 10 MG TABLET PO PRN (13:39)
[2017-04-14] MEDS: LEVOFLOXACIN INJ 750 MG in PREMIX 1 EACH IV SCH (16:40)
[2017-04-15] MEDS: IPRATROPIUM 500 MCG/2.5 ML NEB RESP TX SCH ×2 (00:35→07:09)
[2017-04-15] MEDS: SODIUM CHLORIDE 0.9% 1,000 ML IV SCH (04:15)
[2017-04-15 08:15] VITALS: BP 131/83
--- NOTE | 2017-04-15 08:48 | Discharge Summary ---
Hospital Course - Hospital Course Hospital Course: Mr. Washburn is a 51 year old black male w/PMHx HTN, Mitral Valve Replacement January 2017 presented to the Ed for further evaluation of "heart racing" and shortness of breath with exertion, fever and chills. Denies chest pain, tightness, cough, nausea, vomiting, cough. IN ED: Electrolytes WNL. ESR Westergren 23. CRP 22.60. CXR: Progressive cardiomegaly with interval endovascular valve replacement x2, bilateral pneumonia with associated atelectasis and small pleural effusions, it is difficult to exclude superimposed minimal edema. EKG: sinus tachycardia. IN ED he was given bolus diltiazem, levaquin, 500cc bolus. Denies smoking or drug use. Occasional alcohol use. SurgHx: hernia repair 15 years ago, Mitral Valve replacement Jan 2017. PCP: Dr Hamilton Mr. Washburn was admitted to the hospital with diagnosis of pneumonia. He was seen in consultation by Dr. Boby Diez of pulmonary and Dr. Jarrett Soto of cardiology. Patient was treated with intravenous levofloxacin. He did well rapidly recovering. Repeat chest x-ray done prior to discharge showed no residual infiltrate. At the time of discharge patient was comfortable with no complaints. Diagnosis - Discharge Diagnosis (1) Hypertension Status: Chronic (2) S/P mitral valve repair Status: Chronic (3) Pneumonia Status: Acute Discharge Plan - Discharge Data Disposition: Disch To Home/Self Care Condition at Discharge: Stable Discharge Diet: advance to your usual diet Activity: resume usual activities as tolerated - Discharge Medications New Carvedilol [Coreg] 12.5 mg PO BID tablet Apixaban [Eliquis] 5 mg PO BID tablet Continue Losartan [Cozaar] 50 mg PO BID #60 tablet Apixaban [Eliquis] 5 mg PO BID Cyclobenzaprine [Flexeril] 10 mg PO TID PRN #30 tablet PRN Reason: Spasms HYDROcodone/ACETAMIN 5-325 [[place] 5-325] 1 tablet PO Q6H PRN PRN Reason: Pain - Follow Up or Referral - Forms/Instructions Exam - Constitutional Vitals: Period Temp Pulse Resp BP Sys/Strong Pulse Ox Last 24 Hr 98 F-101.7 F 87-125 12-22 125-136/83-96 95-100 Discharge Results Procedures and tests throughout hospitalization: Pending Orders 04/12/17 15:20 Blood Culture Stat 04/12/17 19:11 Procalcitonin, S Routine Streptococcus pneumoniae Ag, U Routine 04/12/17 19:39 Sputum Culture and Gram Stain Routine 04/12/17 22:14 Legionella Ag, Urine Routine Labs on day of discharge: Preliminary micro results at discharge 04/12/17 15:20 Blood Culture - Preliminary Blood No growth at 1 day 04/12/17 15:20 Blood Culture - Preliminary Blood No growth at 1 day DS: Provider Date of admission: 04/12/17 15:46 Primary care physician: . No PCP Attending physician on admission: Pepe Brunner Consults: 04/12/17 16:50 Consult to Physician [CONS] Routine Comment: Consulting Provider: Jarrett Soto When should Consulting Provider be notified: Now Person Notified: herbert Date Notified: 04/12/17 Time Notified: 18:22 Consult Notification Comment: Patient of Dr Ibrahim Consult to Physician [CONS] Routine Comment: Consulting Provider: Boby Diez When should Consulting Provider be notified: Now Person Notified: eileen Date Notified: 04/12/17 Time Notified: 18:28 Consult Notification Comment: bilateral pneumonia recent mitral valve replacement Discharging clinician: Pepe Brunner
[2017-04-15] MEDS: LOSARTAN 50 MG TABLET PO SCH (09:01)
[2017-04-15] MEDS: PANTOPRAZOLE 40 MG TABLET PO SCH (09:01)
[2017-04-15] MEDS: APIXABAN 5 MG TABLET PO SCH (09:01)
[2017-04-15] MEDS: CARVEDILOL 12.5 MG TABLET PO SCH (09:01)
[2017-04-16 15:25] LABS: Procalcitonin, S 0.14 ng/mL (<=0.15)
== END 2017-04-15 11:35 | disposition home or self-care (01) | DRG 195 ==
LOC: N.ED 13:14 → N.EDINP 15:46 → N.TELES 17:45